=== PATIENT | female | born 1995 | race American Indian/Alaskan Native ===

== ENCOUNTER 2022-02-19 10:38 | Emergency (ER) | payer OTHER ==
[2022-02-19 11:05] VITALS: BP 103/65
[2022-02-19] MEDS ORDERED: LIDOCAINE (2%) 20 MG/1 ML VIAL 20 ML MDV INFILTRATI STA (19:28)
--- NOTE | 2022-02-19 21:56 | Emergency Department Report ---
Abscess Boil HPI - HPI Chief Complaint: Skin/Abscess/Foreign Body Stated Complaint: BACK PAIN/POSS CYST Time Seen by Provider: 02/19/22 19:28 Duration: 1 Week Location: Sacral/Pilonidal Severity: Moderate History: Yes Pain, No Fever, No Purulent Drainage, No Numbness, No Foreign Body, No Previous History, No Insect Bite HPI: 20-week female [facility] department complaining of cystic abscess to her gluteal cleft region was been present for the last 1 week and progressively worsening with swelling and pain. No numbness or tingling, no fever, chills, sweats. No painful bowel movements, no dyspareunia. Home Medications: Previous Rx's Medication Instructions Recorded Last Taken Type Acetaminophen/Codeine [Tylenol 1 tab PO Q12HR PRN #8 02/19/22 Unknown Rx /Codeine # 3 tab] Clindamycin [Clindamycin CAP] 150 mg PO Q8HR #30 capsule 02/19/22 Unknown Rx Allergies/Adverse Reactions: Allergies Allergy/AdvReac Type Severity Reaction Status Date / Time No Known Allergies Allergy Unverified 02/19/22 11:01 ED Review of Systems ROS: Stated complaint: BACK PAIN/POSS CYST Other details as noted in HPI Comment: All other systems reviewed and negative ED Past Medical Hx - Past Medical History Previous Medical History?: No - Surgical History Past Surgical History?: No - Medications Home Medications: Home Medications Medication Instructions Recorded Confirmed Last Taken Type Acetaminophen/Codeine [Tylenol 1 tab PO Q12HR PRN #8 02/19/22 Unknown Rx /Codeine # 3 tab] Clindamycin [Clindamycin CAP] 150 mg PO Q8HR #30 capsule 02/19/22 Unknown Rx ED Abscess Boil Physical Exam - Exam General: Vital signs noted. No distress. Alert and acting appropriately. Size: 3 cm Exam: Yes Tenderness, Yes Fluctuance, Yes Normal Neurologic Exam, Yes Normal Circulation, No Surrounding Cellulites/Erythema, No Lymphangitis, No Crepitation, No Heart Murmur Exam: Pulmonary secondary fluctuance and tenderness on palpation. Not communicating with the rectal wall I & D Note - I & D Note I & D Note: PRE-OP DIAGNOSIS: *Abscess. POST-OP DIAGNOSIS: Same. PROCEDURE: incision and drainage of abscess. Performing Physician/advanced practice provider: Derrick Lowe_. . PROCEDURE: A timeout protocol was performed prior to initiating the procedure. The area was prepared and draped in the usual, sterile manner. The site was anesthetized with 2% lidocaine without epinephrine. A linear incision was along the local skin lines was made and the purulent material expressed. The abcess was explored thoroughly and sequestered pockets were opened. Wound was irrigated with normal saline and bleeding was minimal. Packing: Quarter inch iodoform packing. . Followup: The patient tolerated the procedure well without complications. Standard post-procedure care is explained and return precautions are given. ED Course Vital Signs 02/19/22 11:02 Temperature 98.2 F Pulse Rate 92 H Respiratory 20 Rate Blood Pressure 103/65 [Right] O2 Sat by Pulse 100 Oximetry Critical care attestation.: If time is entered above; I have spent that time in minutes in the direct care of this critically ill patient, excluding procedure time. ED Disposition Clinical Impression: Pilonidal cyst Disposition: 01 HOME / SELF CARE / HOMELESS Is pt being admited?: No Does the pt Need Aspirin: No Condition: Stable Instructions: Pilonidal Cyst, Pilonidal Cyst Drainage Prescriptions: Clindamycin [Clindamycin CAP] 150 mg PO Q8HR #30 capsule Acetaminophen/Codeine [Tylenol /Codeine # 3 tab] 1 tab PO Q12HR PRN #8 PRN Reason: incision pain Referrals: [facility] [Provider Group] - 3-5 Days
== END 2022-02-19 23:14 | disposition home or self-care (01) ==
LOC: ED 10:38
DX: O26.892 Other specified pregnancy related conditions, second trimester (principal); L05.01 Pilonidal cyst with abscess
CPT/HCPCS: 10080; 99282; J3490